=== PATIENT | female | born 1985 | race Caucasian/White ===

== ENCOUNTER 2021-02-07 06:34 | Emergency (ER) | payer OTHER ==
[~2021-02-07] VITALS: Ht 170.2 cm; Wt 75.0 kg
[2021-02-07 06:37] VITALS: BP 125/72
--- NOTE | 2021-02-07 06:56 | PHYS DOC ---
General Adult HPI: HPI: 35-year-old female who denies any significant past medical history presents the ED with complaints of right pinky toe pain with bruising after pt accidently rolled a heavy fridge over it while at work. Pt is [employer] and works nights at the correctional facility. Was wearing her uniform which includes soft shoes. Is ab le to bear weight. Minimal relief with otc medications. NKDA. On daily obcp. Denies any ankle or knee pain. Did not fall or hit her head. Not on any anticoagulants. No history of prior foot/toe fractures. Review of Systems: Review of Systems: Constitutional: Denies fever or chills Eyes: Denies change in visual acuity HENT: Denies nasal congestion or sore throat Respiratory: Denies cough or shortness of breath Cardiovascular: Denies chest pain or syncope GI: Denies nausea, vomiting, : Denies dysuria or vaginal bleeding Musculoskeletal: Denies back pain or joint pain Integument: Denies rash Neurologic: Denies headache, focal weakness or sensory changes Psychiatric: Denies depression or anxiety Physical Exam: PE: Constitutional: Well developed, well nourished, no acute distress, non-toxic appearance. HENT: Normocephalic, atraumatic, Eyes: EOMI, conjunctiva normal, no discharge. Neck: Normal range of motion, supple, Cardiovascular: S1/2 present, regular rhythm Lungs & Thorax: Speaking in full sentences, bilateral equal chest rise, no tachypnea or increased work of breathing Abdomen: soft, no tenderness, Skin: Warm, dry, Extremities: no lower extremity edema, R DP/PT intact, no ttp over right knee/fibular head/malleoli/ankle/tarsals/metatarsals, 5th toe w/bruising at proximal aspect, no skin break, no subungual hematoma Neurologic: Alert and oriented X 3, normal motor function, normal sensory function, no focal deficits noted. [] Psychologic: Affect normal, judgement normal, mood normal. [] EKG: EKG: [] Radiology/Procedures: Radiology/Procedures: []IMAGING REPORT Signed PATIENT: ELOISE ALVARENGA ACCOUNT: [id number] : 1985 LOCATION: ER AGE: 35 SEX: F EXAM STATUS: REG ER ORD. PHYSICIAN: HAYES LAMBERT DO REASON: pinky toe with bruising/blunt injury PROCEDURE: TOES RIGHT Exam Date: 02/07/2021 6:53 AM XR FOOT_RIGHT 2 VIEWS, XR RT TOE 2+ VIEWS Indication: Reason: pinky toe with bruising/blunt injury / Spl. Instructions: / History: FINDINGS/ IMPRESSION: Mild calcaneal enthesopathy is present. No acute fracture or dislocation. Alignment and joint spaces are maintained. The soft tissues are within normal limits. Electronically signed by: Cameron Underwood MD (02/07/2021 7:09 AM) [id number] DICTATED AND SIGNED BY: CAMERON UNDERWOOD MD DATE: 02/07/21 0708 CC: NON,STAFF; HAYES LAMBERT DO ~MTH0 0 Heart Score: C/O Chest Pain: No Risk Factors: Risk Factors: DM, Current or recent (<one month) smoker, HTN, HLP, family history of CAD, obesity. Risk Scores: Score 0 - 3: 2.5% MACE over next 6 weeks - Discharge Home Score 4 - 6: 20.3% MACE over next 6 weeks - Admit for Clinical Observation Score 7 - 10: 72.7% MACE over next 6 weeks - Early Invasive Strategies Course & Med Decision Making: Course & Med Decision Making Pertinent Labs and Imaging studies reviewed. (See chart for details) Concern for blunt right pinky toe injury with obvious contusion, cannot exclude occult fracture. Work note given/pt is . Will rx 5 tablets of norco-pt understands adverse effects and agrees not to mix with other depressants, alcohol and to not take at work or while driving. Conservative management with sina tape pain and rice instructions. Will discharge home with strict ED return precautions were given for repeat injury, neurologic deficits or severe pain. Encouraged urgent outpatient follow-up with PMD for routine care and podiatry for definitive management. Life-threatening processes were considered but are l ow suspicion at this time, given history, physical exam and ED workup. Pt was educated on all prescription medications and adverse effects. All patient's questions were answered and pt was stable at time of discharge. Life/limb-threatening differential includes but is not limited to, avascular necrosis, septic arthritis, malignancy, compartment syndrome, fracture/ligamentous injury/overuse, decompression sickness, seronegative spondyloarthropathies, trauma including dislocation/fracture, Lyme disease, lup us, arthritis differentials, gout/pseudogout or decompression sickness. I spoken with the patient and her caregivers. I explained the patient's condition, diagnoses and treatment plan based on the information available to me at this time. I have answered the patient and her caregiver's questions and addressed any concerns. The patient and her caregivers have a good understandi ng of patient's diagnosis, condition and treatment plan as can be expected at this point. Vital signs have been stable. Patient's condition is stable and appropriate for discharge from the emergency department. Patient will pursue further outpatient evaluation with primary care physician or other designated or consulting physician as outlined in the discharge instructions. The patient and/or caregivers are agreeable to this plan of care and follow-up instructions have been explained in detail. The patient and/or caregivers have received these instructions in written form and have expressed an understanding of the discharge instructions. The patient and/or caregivers are aware that any significant change of condition or worsening of symptoms should prompt immediate return to this or the closest emergency department or call to 2Antione Espinoza Disclaimer: Alexis Disclaimer: This electronic medical record was generated, in whole or in part, using a voice recognition dictation system. Departure Departure: Impression: Primary Impression: Contusion of toe of right foot Additional Impression: Contusion of toe without damage to nail Disposition: 01 HOME / SELF CARE / HOMELESS Condition: STABLE [facility] [address] [address] [address] [id number] Patient Instructions: Sina Taping of Toes, Contusion, Crush Injury, Fingers or Toes Additional Instructions: FOLLOW UP WITH PODIATRY: As needed for definitive management Podiatric Surgery [address] [facility], [facility] [address] [place] [address] EMERGENCY DEPARTMENT GENERAL DISCHARGE INSTRUCTIONS Thank you for coming to [facility] (ED) today and trusting us with you care. We trust that you had a positivie experience in our Emergency Department. If you wish to speak to the department management, you may call the director at [phone]. YOUR FOLLOW UP INSTRUCTIONS ARE FOLLOWS: 1. Do you have a private Doctor? If you do not have a private doctor, please ask for a resource list of physicians or clinics that may be able to assist you with follow up care. 2. The Emergency Physician has interpreted your x-rays. The X-Ray specialist will also review them. If there is a change in the findings, you will be notified in 48 hours when at all possible. 3. A lab test or culture has been done, your results will be reviewed and you will be notified if you need a change in treatment. ADDITIONAL INSTRUCTIONS AND INFORMATION: 1. Your care today has been supervised by a physician who is specially trained in emergency care. Many problems require more than one evaluation for a complete diagnosis and treatment. We recommend that you schedule your follow up appointment as recommended to ensure complete treatment of you illness or injury. If you are unable to obtain follow up care and continue to have a problem, or if your condition worsens, we recommend that you return to the ED. 2. We are not able to safely determine your condition over the phone nor are we able to give sound medical advice over the phone. For these safety reasons, if you call for medical advice we will ask you to come to the ED for further evaluation. 3. If you have any questions regarding these discharge instructions please call the ED at [phone]. SAFETY INFORMATION: In the interest of safety, wellness, and injury prevention; we encourage you to wear your sealbelt, if you smoke; quite smoking, and we encourage family to use a protective helmet for bicycling and other sporting events that present an increased risk for head injury. IF YOUR SYMPTOMS WORSEN OR NEW SYMPTOMS DEVELOP, OR YOU HAVE CONCERNS ABOUT YOUR CONDITION; OR IF YOUR CONDITION WORSENS WHILE YOU ARE WAITING FOR YOUR FOLLOW UP APPOINTMENT; EITHER CONTACT YOUR PRIMARY CARE DOCTOR, THE PHYSICIAN WHOSE NAME AND NUMBER YOU WERE GIVEN, OR RETURN TO THE ED IMMEDIATELY. Scripts Hydrocodone Bit/Acetaminophen (HYDROCODONE-APAP 5-325 ) 1 Each Tablet 1 TAB PO PRN Q6HRS PRN for PAIN for 2 Days, #5 TAB 0 Refills Caution: this medication can make you drowsy. Do not drive or operate heavy machinery when using this medication. Prov: HAYES LAMBERT DO 02/07/21 HAYES LAMBERT DO February 07, 2021 06:56
--- NOTE | 2021-02-07 07:11 | RAD ---
Exam Date: 02/07/2021 6:53 AM XR FOOT_RIGHT 2 VIEWS, XR RT TOE 2+ VIEWS Indication: Reason: pinky toe with bruising/blunt injury / Spl. Instructions: / History: FINDINGS/ IMPRESSION: Mild calcaneal enthesopathy is present. No acute fracture or dislocation. Alignment and joint spaces are maintained. The soft tissues are w ithin normal limits. Electronically signed by: Adria Underwood MD (02/07/2021 7:09 AM) [id number]
[2021-02-07] MEDS ORDERED: HYDR-2155 PO (07:28)
== END 2021-02-07 07:38 | disposition home or self-care (01) ==
LOC: ER 06:34
DX: S90.121A Contusion of right lesser toe(s) without damage to nail, initial encounter (principal); W20.8XXA Other cause of strike by thrown, projected or falling object, initial encounter; Y93.89 Activity, other specified; Y92.89 Other specified places as the place of occurrence of the external cause; Y99.8 Other external cause status
CPT/HCPCS: 73620; 73660; 99284